=== PATIENT | female | born 1940 | race Hispanic/Latino ===

== ENCOUNTER 2022-06-06 01:31 | Emergency (ER) | payer OTHER ==
[~2022-06-06] VITALS: Ht 152.4 cm; Wt 60.8 kg
[~2022-06-06 01:31] MED LIST: VITAMIN D PO
[2022-06-06] MEDS ORDERED: SOLU-MEDROL 125MG VIAL IVP ONE (05:30)
[2022-06-06] MEDS ORDERED: FAMOTIDINE 20MG VIAL IV ONE (05:30)
[2022-06-06] MEDS ORDERED: DiphenhydrAMINE HCL 50 MG/ML VIAL IV ONE (05:30)
[2022-06-06 05:48] LABS: BASOPHILS % (AUTO) 0.3 % (0.0-5.0); EOSINOPHILS % (AUTO) 2.1 % (0.0-8.0); HEMATOCRIT 39.2 % (36-48); LYMPHOCYTES % (AUTO) 16.6 % (21.0-51.0); MEAN CORPUSCULAR HGB CONC 32.4 g/dL (32.0-36.0); MEAN CORPUSCULAR VOLUME 86.3 fL (79-99); MONOCYTES % (AUTO) 6.7 % (3.0-13.0); NEUTROPHILS % (AUTO) 73.7 % (40.0-77.0); PLATELET COUNT (AUTO) 225 K/uL (130-400); RED BLOOD CELL COUNT(AUTO) 4.54 MIL/uL (4.00-5.50); RED CELL DISTRIBUTION WIDTH 14.3 % (11.0-15.5); WHITE BLOOD COUNT (AUTO) 9.6 K/uL (4.8-10.8)
[2022-06-06 06:05] LABS: ALBUMIN 3.8 g/dL (3.5-5.0); CREATININE 0.5 mg/dL (0.5-1.5); POTASSIUM 3.8 mmol/L (3.5-5.1); TOTAL PROTEIN, SERUM 7.5 g/dL (6.0-8.3)
[2022-06-06 07:07] VITALS: BP 133/55
[2022-06-06] MEDS ORDERED: PRED20TA3 PO (07:08)
[2022-06-06] MEDS ORDERED: DIPH-1242 PO (07:08)
[2022-06-06] MEDS ORDERED: FAMO40TA7 PO (07:09)
== END 2022-06-06 08:08 | disposition home or self-care (01) ==
LOC: EDH 01:31
DX: T78.49XA Other allergy, initial encounter (principal); R60.9 Edema, unspecified; I10 Essential (primary) hypertension; E78.00 Pure hypercholesterolemia, unspecified; Z88.1 Allergy status to other antibiotic agents; Z88.8 Allergy status to other drugs, medicaments and biological substances; X58.XXXA Exposure to other specified factors, initial encounter
CPT/HCPCS: 99284; 96374; 96375; 80053; 85025; 82948; 36415; J1200; J3490; J2930

== ENCOUNTER 2023-10-11 12:48 | Emergency (ER) | payer OTHER ==
[~2023-10-11] VITALS: Ht 152.4 cm; Wt 62.1 kg
[~2023-10-11 12:48] MED LIST changes: +DIPH-1242 PO; +FAMO40TA7 PO; +PRED20TA3 PO
[2023-10-11 14:10] LABS: BASOPHILS # (AUTO) 0.03 K/uL (0.00-0.20); BASOPHILS % (AUTO) 0.2 % (0.0-5.0); HEMATOCRIT 34.5 % (36-48); IMMATURE GRANULOCYTE ABSOLUTE 0.16 K/uL (0-1); LYMPHOCYTES # (AUTO) 0.6 K/uL (1.0-4.8); LYMPHOCYTES % (AUTO) 3.3 % (21.0-51.0); MEAN CORPUSCULAR HEMOGLOBIN 28.1 pg (27.0-33.0); MEAN CORPUSCULAR HGB CONC 32.5 g/dL (32.0-36.0); MEAN CORPUSCULAR VOLUME 86.5 fL (79-99); MONOCYTES % (AUTO) 5.3 % (3.0-13.0); NEUTROPHILS # (AUTO) 17.6 K/uL (1.8-7.7); NEUTROPHILS % (AUTO) 90.4 % (40.0-77.0); PLATELET COUNT (AUTO) 184 K/uL (130-400); RED BLOOD CELL COUNT(AUTO) 3.99 MIL/uL (4.00-5.50); RED CELL DISTRIBUTION WIDTH 12.8 % (11.0-15.5); WHITE BLOOD COUNT (AUTO) 19.5 K/uL (4.8-10.8)
[2023-10-11 14:52] LABS: ALBUMIN 3.5 g/dL (3.5-5.0); BILIRUBIN,TOTAL 1.3 mg/dL (0.2-1.0); CREATININE 0.8 mg/dL (0.5-1.0); POTASSIUM 3.1 mmol/L (3.5-5.1); TOTAL PROTEIN, SERUM 7.4 g/dL (6.0-8.3)
[2023-10-11] MEDS: 0.9%NACL 1000ML 1,000 ML IV ONE (15:07)
[2023-10-11] MEDS: LEVOFLOXACIN 500 MG/D5W 100 ML 100 ML IV STA (15:56)
[2023-10-11] MEDS: ASPIRIN 325MG TAB PO ONE (15:56)
[2023-10-11 16:17] LABS: APPEARANCE,URINE CLEAR (CLEAR); BILIRUBIN,URINE NEGATIVE (NEGATIVE); COLOR,URINE YELLOW (YELLOW); GLUCOSE, URINE (UA) NEGATIVE (NEGATIVE); KETONES,URINE 10 mg/dL (NEGATIVE); LEUKOCYTE ESTERASE ,URINE NEGATIVE Leu/uL (NEGATIVE); NITRATE,URINE NEGATIVE (NEGATIVE); PROTEIN,URINE 30 mg/dL (NEGATIVE); UROBILINOGEN,URINE 0.2 mg/dL (0.2-1.0)
[2023-10-11 16:26] LABS: ADD UA MICROSCOPIC YES
[2023-10-11 16:27] LABS: BACTERIA,URINE RARE /HPF (None Seen); MUCUS,URINE RARE LPF (None Seen); OTHER CASTS, URINE 1 /LPF (None Seen)
[2023-10-11] MEDS ORDERED: POTASSIUM CHLORIDE 20MEQ/100ML 100 ML IV PRN (18:00)
[2023-10-11] MEDS: 0.9%NACL 1000ML 1,000 ML IV SCH (18:06)
[2023-10-11] MEDS: KCL 20 MEQ ERTAB PO PRN (18:06)
[2023-10-11 18:11] LABS: INR 1.08 (0.85-1.15); PROTHROMBIN TIME 11.6 SEC (9.6-11.6)
[2023-10-11 18:13] LABS: PARTIAL THROMBOPLASTIN TIME 31.1 SEC (26.3-35.5)
[2023-10-11 18:20] LABS: HEMOGLOBIN A1C 5.5 % (4.0-6.0)
[2023-10-11] MEDS: POTASSIUM CHLORIDE 10% ELIXIR 20 MEQ/15 ML UDCUP PO PRN (18:21)
[2023-10-11 19:31] LABS: SARS-CoV-2, RNA, NAAT NEGATIVE SARS CoV-2 (NEGATIVE)
[2023-10-11 19:31] LABS: MAGNESIUM 1.6 mg/dL (1.80-2.40); THYROID STIMULATING HORMONE 1.27 uIU/mL (0.36-3.74)
[2023-10-11 19:35] LABS: INFLUENZA TYPE A Negative For Type A (NEGATIVE); INFLUENZA TYPE B Negative For Type B (NEGATIVE)
[2023-10-11] MEDS ORDERED: METOPROLOL TARTRATE 25 MG TAB PO SCH (21:00)
[2023-10-11] MEDS ORDERED: FAMOTIDINE 20MG TAB PO SCH (21:00)
[2023-10-11] MEDS: MAGNESIUM 2GM PREMIX 50ML 50 ML IV SCH (21:24)
[2023-10-11] MEDS ORDERED: MAGNESIUM 2GM PREMIX 50ML 50 ML IV SCH (21:30)
[2023-10-11 22:03] VITALS: BP 105/46; PULSE 52; RESP 17; O2SAT 99
[2023-10-12] MEDS ORDERED: ASPIRIN 81 MG EC TAB PO SCH (09:00)
== END 2023-10-11 22:14 | disposition short-term general hospital (02) ==
LOC: EDH 12:48 → EDHIP 17:48 → UNDOADMIN 17:48 → EDH 22:14
DX: T67.5XXA Heat exhaustion, unspecified, initial encounter (principal); Z20.822 Contact with and (suspected) exposure to COVID-19; E86.0 Dehydration; R53.1 Weakness; R79.89 Other specified abnormal findings of blood chemistry; E78.00 Pure hypercholesterolemia, unspecified; I10 Essential (primary) hypertension; Z86.73 Personal history of transient ischemic attack (TIA), and cerebral infarction without residual deficits; Z88.1 Allergy status to other antibiotic agents; Z88.8 Allergy status to other drugs, medicaments and biological substances; Z79.899 Other long term (current) drug therapy; Z79.82 Long term (current) use of aspirin; Z95.2 Presence of prosthetic heart valve; Z98.61 Coronary angioplasty status; X30.XXXA Exposure to excessive natural heat, initial encounter; Y93.89 Activity, other specified; Y92.89 Other specified places as the place of occurrence of the external cause; Y99.8 Other external cause status
CPT/HCPCS: 99291; 96365; 70450; 71045; 87635; 96366; 96361; 96375; 83036; 84443; 82550 ×2; 83735; 84484 ×4; 80053; 83880; 85025; 85610; 85730; 85651; 87040 ×2; 87086 ×2; 87186 ×2; 87804 ×2; 83605; 86140; 81001; 36415; 93005 ×2; 84145; J3475; J1956; J7030 ×2

== ENCOUNTER 2024-03-17 09:06 | Day surgery (SDC) | payer OTHER ==
[2024-03-12 08:48] LABS: BASOPHILS # (AUTO) 0.02 K/uL (0.00-0.20); BASOPHILS % (AUTO) 0.4 % (0.0-5.0); EOSINOPHILS # (AUTO) 0.42 K/uL (0.00-0.70); EOSINOPHILS % (AUTO) 8.5 % (0.0-8.0); HEMATOCRIT 37.4 % (36-48); IMMATURE GRANULOCYTE ABSOLUTE 0.01 K/uL (0-1); LYMPHOCYTES # (AUTO) 1.2 K/uL (1.0-4.8); LYMPHOCYTES % (AUTO) 23.6 % (21.0-51.0); MEAN CORPUSCULAR HEMOGLOBIN 28.6 pg (27.0-33.0); MEAN CORPUSCULAR HGB CONC 31.8 g/dL (32.0-36.0); MEAN CORPUSCULAR VOLUME 89.9 fL (79-99); MONOCYTES # (AUTO) 0.5 K/uL (0.1-1.0); MONOCYTES % (AUTO) 10.3 % (3.0-13.0); NEUTROPHILS # (AUTO) 2.8 K/uL (1.8-7.7); PLATELET COUNT (AUTO) 231 K/uL (130-400); RED BLOOD CELL COUNT(AUTO) 4.16 MIL/uL (4.00-5.50); RED CELL DISTRIBUTION WIDTH 15.2 % (11.0-15.5)
[2024-03-12 08:51] LABS: CREATININE 1.1 mg/dL (0.5-1.0); POTASSIUM 3.2 mmol/L (3.5-5.1)
[2024-03-12 08:55] VITALS: BP 134/54; PULSE 66; RESP 18; TEMP 97.3
--- NOTE | 2024-03-16 15:23 | NUR ---
report reported potassium level to dr gupta. received orders to repeat am of procedure.
[~2024-03-17] VITALS: Ht 147.3 cm; Wt 54.8 kg
[2024-03-17] VITALS (7 sets, daily range): BP systolic 110–183; BP diastolic 41–77; PULSE 43–68; RESP 14–18; TEMP 97.6–98.1
[~2024-03-17 09:06] MED LIST changes: +AMIO200T68 PO; +APIX2.5T PO; +ATOR40TA71 PO; -DIPH-1242 PO; +DONE5TAB33 PO; -FAMO40TA7 PO; +LOSA50TA64 PO; +METO25 PO; -PRED20TA3 PO
--- NOTE | 2024-03-17 09:42 | EKG ---
[facility] Test Date: 2024-03-17 Test Time: 10:27:48 Pat Name: DAYANA CARDENAS Department: [facility] Room: [facility] Gender: F Cigar Inspector: [id number] : 1940 Requested By: NGUYEN CANALES Order Number: [id number] Reading MD: Robin Adhikari Measurements Intervals [place] Rate: 65 P: 0 NE: 0 QRS: -46 QRSD: 128 T: 85 QT: 480 QTc: 505 Interpretive Statements Atrial flutter Left bundle branch block Compared to ECG 10/11/2023 15:12:29 Left bundle-branch block now present Sinus rhythm no longer present Atrial premature complex(es) no longer present Left ventricular hypertrophy no longer present Electronically Signed On 03-17-2024 18:11:20 FORCE DISPATCHER by Robin Adhikari Please click the below link to view image of tracing.
[2024-03-17] MEDS: 0.9%NACL 1000ML 1,000 ML IV SCH (10:29)
[2024-03-17] MEDS ORDERED: proPOFol 10 MG/ML 20ML VIAL IV ONE (11:39)
--- NOTE | 2024-03-17 12:08 | EKG ---
[facility] Test Date: 2024-03-17 Test Time: 12:52:22 Pat Name: DAYANA CARDENAS Department: [facility] Room: [facility] Gender: F Copyist: [id number] : 1940 Requested By: NGUYEN CANALES Order Number: [id number] Reading MD: Robin Adhikari Measurements Intervals [place] Rate: 42 P: 72 CT: 244 QRS: -33 QRSD: 118 T: 70 QT: 518 QTc: 432 Interpretive Statements Marked sinus bradycardia with 1st degree AV block Left axis deviation Nonspecific intraventricular conduction delay Nonspecific T wave abnormality Compared to ECG 03/17/2024 10:27:48 First degree AV block now present Left-axis deviation now present Intraventricular conduction delay now present T-wave abnormality now present Atrial flutter no longer present Left bundle-branch block no longer present Electronically Signed On 03-17-2024 18:11:35 PATHOLOGY LABORATORY DIRECTOR by Robin Adhikari Please click the below link to view image of tracing.
--- NOTE | 2024-03-17 12:26 | PRN ---
Procedure: [facility] Cardioversion Procedure Note DATE OF PROCEDURE: Mar 17, 2024 PROCEDURE PERFORMED: DIRECT-CURRENT CARDIOVERSION PREFORMING PHYSICIAN: Millie Del Toro MD INDICATION: atrial fibrillation PROCEDURE NOTE: After informed consent was obtained, and timeout procedure performed, as well as verification of resuscitative equipment availability, the patient was sedated per anesthesia. When adequate sedation was obtained the patient underwent direct-current cardioversion with [200] J of synchronized, biphasic, direct- current energy to sinus rhythm with blocked PACs. The patient tolerated the p rocedure well. There were no immediate complications noted. COMPLICATIONS: None, the patient tolerated the procedure well and there were no immediate complications noted. He persisted in [sinus rhythm] for several minutes of mon itoring at bedside and this was confirmed on twelve-lead EKG. DISCHARGE RECOMMENDATIONS: Stop metoprolol. Continue rest of home medications. will place 1 week monitor and follow up with results MILLIE RUIZ MD Mar 17, 2024 12:26
== END 2024-03-17 13:00 | disposition home or self-care (01) ==
LOC: DAH 09:06
PROVIDERS: ATTEND Student in an Organized Health Care Education/Training Program
DX: I48.19 Other persistent atrial fibrillation (principal); I44.0 Atrioventricular block, first degree; I44.7 Left bundle-branch block, unspecified; I48.92 Unspecified atrial flutter; I10 Essential (primary) hypertension; E78.5 Hyperlipidemia, unspecified; I25.10 Atherosclerotic heart disease of native coronary artery without angina pectoris; Z86.73 Personal history of transient ischemic attack (TIA), and cerebral infarction without residual deficits; Z79.01 Long term (current) use of anticoagulants; Z88.1 Allergy status to other antibiotic agents; Z88.8 Allergy status to other drugs, medicaments and biological substances; Z79.899 Other long term (current) drug therapy; Z98.890 Other specified postprocedural states
CPT/HCPCS: 80048; 85025; 36415 ×2; 92960; 84132; 93005 ×2; A4223 ×3; J2704; A4620; A4215; A4222; A4221; A4663; A4216; A4606; J3490